=== PATIENT | male | born 1965 | race Caucasian/White ===

== ENCOUNTER 2016-11-14 15:59 | Emergency (ER) | payer MEDICAID ==
[~2016-11-14] VITALS: Ht 172.7 cm; Wt 54.5 kg
[~2016-11-14 15:59] MED LIST: CLARITIN 1010 MG/TAB PO; FLEXERIL 1010 MG/TAB PO; NAPROSYN500 MG PO; NO HOME MEDICATIONS; NORCO 325 MG-51 TAB PO
[2016-11-14 16:03] VITALS: TEMP 99.4
[2016-11-14 16:57] LABS: INFLUENZA B NEGATIVE
[2016-11-14] MEDS ORDERED: NORCO 325 MG-51 TAB PO (17:26)
[2016-11-14] MEDS ORDERED: LEVAQUIN 5500 MG/TA1 PO (17:26)
[2016-11-14 17:30] VITALS: BP 120/81; PULSE 94
== END 2016-11-14 17:43 | disposition home or self-care (01) ==
LOC: COL.ER 15:59
PROVIDERS: Emergency Medicine
DX: J18.9 Pneumonia, unspecified organism (principal); F17.210 Nicotine dependence, cigarettes, uncomplicated
CPT/HCPCS: J7030

== ENCOUNTER 2022-10-20 14:49 | Outpatient (RCR) | payer OTHER ==
[~2022-10-20 14:49] MED LIST changes: +LEVAQUIN 5500 MG/TA1 PO
== END 2022-11-09 | disposition home or self-care (01) ==
LOC: WSOH
DX: S46.122A Laceration of muscle, fascia and tendon of long head of biceps, left arm, initial encounter (principal); Y99.0 Civilian activity done for income or pay; M54.2 Cervicalgia; M25.512 Pain in left shoulder

== ENCOUNTER 2023-06-25 10:54 | Emergency (ER) | payer MEDICAID ==
[~2023-06-25] VITALS: Ht 170.2 cm; Wt 58.2 kg
[2023-06-25] MEDS ORDERED: MOBIC15 MG PO (11:35)
[2023-06-25] MEDS ORDERED: FLEXERIL 1010 MG/TAB PO (11:35)
[2023-06-25 12:38] VITALS: BP 147/80; PULSE 58; TEMP 97.8
== END 2023-06-25 12:35 | disposition home or self-care (01) ==
LOC: COL.ER 10:54
DX: M25.561 Pain in right knee (principal); R29.898 Other symptoms and signs involving the musculoskeletal system; Z28.310 Unvaccinated for COVID-19
CPT/HCPCS: J1885; J2360